=== PATIENT | male | born 1955 | race Caucasian/White ===

== ENCOUNTER 2017-03-02 20:03 | Emergency (ER) | payer OTHER ==
[~2017-03-02] VITALS: Ht 182.9 cm; Wt 98.0 kg
[2017-03-02 20:26] VITALS: BP 137/84; PULSE 102; RESP 20; TEMP 98.3; O2SAT 99
[2017-03-02] MEDS ORDERED: MULT-65 PO (20:40)
[2017-03-02] MEDS ORDERED: TRAZ50TA12 PO (20:40)
[2017-03-02] MEDS ORDERED: CALCTAB19 PO (20:40)
[2017-03-02] MEDS ORDERED: ASPI81TA81 PO (20:40)
[2017-03-02] MEDS ORDERED: TACR1CAP PO (20:40)
[2017-03-02] MEDS ORDERED: METO50TA PO (20:40)
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
--- NOTE | 2017-03-02 21:25 | RADRPT ---
EXAM DATE/TIME: 03/02/2017 20:54 [facility] COMPARISON: No previous studies available for comparison. INDICATIONS : NURSING HOME. Patient complains of lower back pain. MEDICAL HISTORY : None. SURGICAL HISTORY : None. ENCOUNTER: Initial ACUITY: 1 day PAIN SCORE: 4/10 LOCATION: L-Spine FINDINGS: There are five non-rib bearing vertebral bodies. There is a mild rotatory dextroscoliosis with advanc ed degenerative disc disease at L2-3 and a grade 1 retrolisthesis. CONCLUSION: 1. Grade 1 retrolisthesis of L2 on L3 with advanced degenerative disc disease. No acute fracture. Harpreet Kay MD on March 02, 2017 at 21:21 Board Certified Radiologist. This report was verified electronically.
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
--- NOTE | 2017-03-02 21:25 | RADRPT ---
EXAM DATE/TIME: 03/02/2017 20:54 [facility] COMPARISON: No previous studies available for comparison. INDICATIONS : [facility]. Patient complains of lower back pain. MEDICAL HISTORY : None. SURGICAL HISTORY : None. ENCOUNTER: Initial ACUITY: 1 day PAIN SCORE: 4/10 LOCATION: L-Spine FINDINGS: There are five non-rib bearing vertebral bodies. There is a mild rotatory dextroscoliosis with advanc ed degenerative disc disease at L2-3 and a grade 1 retrolisthesis. CONCLUSION: 1. Grade 1 retrolisthesis of L2 on L3 with advanced degenerative disc disease. No acute fracture. Harpreet Kay MD on March 02, 2017 at 21:21 Board Certified Radiologist. This report was verified electronically.
[2017-03-02] MEDS ORDERED: TACROLIMUS 1 MG CAP PO STA (21:48)
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
== END 2017-03-02 22:24 | disposition home or self-care (01) ==
LOC: NEPD 20:03
DX: M54.5 Low back pain (principal); M54.2 Cervicalgia; V29.88XA Motorcycle rider (driver) (passenger) injured in other specified transport accidents, initial encounter
CPT/HCPCS: 72110; 72125; 99284; J7507